=== PATIENT | female | born 1995 | race African-American/Black ===

== ENCOUNTER 2018-04-29 20:25 | Emergency (ER) | payer OTHER ==
[~2018-04-29] VITALS: Ht 167.6 cm; Wt 105.2 kg
[2018-04-29 20:34] VITALS: BP 145/83
[2018-04-29] MEDS ORDERED: ROBAXIN 750 MG750 M1 PO (21:55)
[2018-04-29] MEDS ORDERED: NAPROSYN500 MG PO (21:55)
== END 2018-04-29 21:50 | disposition home or self-care (01) ==
LOC: ER 20:25
DX: S29.012A Strain of muscle and tendon of back wall of thorax, initial encounter (principal); Z98.890 Other specified postprocedural states; V89.2XXA Person injured in unspecified motor-vehicle accident, traffic, initial encounter; Y92.89 Other specified places as the place of occurrence of the external cause; Y93.89 Activity, other specified; Y99.8 Other external cause status

== ENCOUNTER 2018-11-06 14:00 | Emergency (ER) | payer OTHER ==
[~2018-11-06] VITALS: Ht 167.6 cm; Wt 106.1 kg
[~2018-11-06 14:00] MED LIST: NAPROSYN500 MG PO; ROBAXIN 750 MG750 M1 PO
[2018-11-06 14:06] VITALS: BP 140/78
== END 2018-11-06 15:05 | disposition home or self-care (01) ==
LOC: ER 14:00
DX: S20.222A Contusion of left back wall of thorax, initial encounter (principal); Z98.890 Other specified postprocedural states; V69.9XXA Occupant (driver) (passenger) of heavy transport vehicle injured in unspecified traffic accident, initial encounter; Y93.89 Activity, other specified; Y92.411 Interstate highway as the place of occurrence of the external cause; Y99.8 Other external cause status

== ENCOUNTER 2020-10-07 02:46 | Emergency (ER) | payer OTHER ==
[~2020-10-07] VITALS: Ht 167.6 cm; Wt 97.5 kg
[2020-10-07 03:13] VITALS: BP 144/81
[2020-10-07] MEDS ORDERED: ENBRACE HR SOF1 EACH PO (03:16)
[2020-10-07] MEDS ORDERED: PERCOCET 5-3251 EACH PO (04:48)
== END 2020-10-07 04:56 | disposition home or self-care (01) ==
LOC: ER 02:46
DX: O99.611 Diseases of the digestive system complicating pregnancy, first trimester (principal); K02.9 Dental caries, unspecified; Z3A.10 10 weeks gestation of pregnancy; Z98.890 Other specified postprocedural states; Z79.899 Other long term (current) drug therapy

== ENCOUNTER 2021-03-18 10:21 | Emergency (ER) | payer OTHER ==
[~2021-03-18] VITALS: Ht 167.6 cm; Wt 119.3 kg
[~2021-03-18 10:21] MED LIST changes: +ENBRACE HR SOF1 EACH PO; +IRON325 M1 PO; +PERCOCET 5-3251 EACH PO
[2021-03-18 10:24] VITALS: BP 124/74
[2021-03-18] MEDS ORDERED: CEPHALEXIN500 MG PO (10:41)
== END 2021-03-18 10:48 | disposition home or self-care (01) ==
LOC: ER 10:21
DX: S61.211D Laceration without foreign body of left index finger without damage to nail, subsequent encounter (principal); Z48.02 Encounter for removal of sutures; X58.XXXD Exposure to other specified factors, subsequent encounter